=== PATIENT | male | born 2000 | race Caucasian/White ===

== ENCOUNTER 2022-08-25 23:53 | Emergency (ER) | payer OTHER ==
[2022-08-26] MEDS ORDERED: ASPIRIN 81 MG CHEWABLE TABLET ONE (00:54)
[2022-08-26 01:58] LABS: RBC Red Blood Cell Count 5.07 M/uL (4.33-5.43)
[2022-08-26 01:59] LABS: Protime INR 0.99
[2022-08-26 02:09] LABS: Absolute Lymphocytes (CBC) 2.9 K/uL (0.7-4.9); Hematocrit 40.9 % (39.6-49.0); MCV 80.7 fL (80-100); MPV 8.8 fL (7.6-11.3)
[2022-08-26 02:13] LABS: Bilirubin Direct 0.1 mg/dL (0-0.2); Bilirubin Total 0.5 mg/dL (0.2-1.0); Magnesium 2.4 mg/dL (1.6-2.4); Potassium 3.5 mmol/L (3.5-5.1); Protein, Total 7.8 g/dL (6.4-8.2); Troponin High Sensitivity 8.2 pg/mL (<58.9)
[2022-08-26] MEDS ORDERED: AMLODIPINE 5 MG TAB ONE (03:20)
--- NOTE | 2022-08-26 04:09 | ER ---
Nurse's Notes [facility] Name: Eddie Cleveland Age: 21 yrs Sex: Male : 2000 Arrival Date: 08/25/2022 Time: 23:57 Bed 6 Private MD: Diagnosis: Chest pain, unspecified;Essential (primary) hypertension Presentation: 08/26 00:19 Chief complaint: Patient states: I started having chest pain two days ago. It feel deep kd3 and it is right in the center. It comes and goes and stays for a minute and then it goes away. I think i am having a tremor with it when it happens. I do take medication for high blood pressure. 00:19 Method Of Arrival: Ambulatory kd3 00:22 Coronavirus screen: Vaccine status: Patient reports being unvaccinated. Ebola Screen: kd3 No symptoms or risks identified at this time. Initial Sepsis Screen: Does the patient meet any 2 criteria? No. Patient's initial sepsis screen is negative. Does the patient have a suspected source of infection? No. Patient's initial sepsis screen is negative. Risk Assessment: Do you want to hurt yourself or someone else? Patient reports no desire to harm self or others. Onset of symptoms was August 26, 2022. 00:22 Acuity: TIP 4 kd3 Triage Assessment: 00:22 General: Appears in no apparent distress. Behavior is calm, cooperative. Pain: kd3 Complains of pain in mid-sternal area. Cardiovascular: Capillary refill < 3 seconds in bilateral fingers Patient's skin is warm and dry. Historical: - Allergies: 00:21 No Known Allergies; kd3 - Home Meds: 00:21 losartan-hydrochlorothiazide oral [Active]; amlodipine oral [Active]; kd3 - PMHx: 00:21 Hypertensive disorder; Anxiety; kd3 - Immunization history:: Adult Immunizations up to date, Client reports having NOT received the Covid vaccine. - Social history:: Smoking status: Patient denies any tobacco usage or history of. - Family history:: not pertinent. Screenin:40 [facility] ED Fall Risk Assessment (Adult) History of falling in the last 3 months, ll3 including since admission No falls in past 3 months (0 pts) Confusion or Disorientation No (0 pts) Intoxicated or Sedated No (0 pts) Impaired Gait No (0 pts) Mobility Assist Device Used No (0 pt) Altered Elimination No (0 pt) Score/Fall Risk Level 0 - 2 = Low Risk Oriented to surroundings, Maintained a safe environment. Abuse screen: Denies threats or abuse. Denies injuries from another. Nutritional screening: No deficits noted. Tuberculosis screening: No symptoms or risk factors identified. Assessment: 01:00 General: Appears uncomfortable, Behavior is calm, cooperative. Pain: Complains of pain ll3 in mid-sternal area Pain does not radiate. Pain currently is 9 out of 10 on a pain scale. Quality of pain is described as pressure, Pain began 2-3 days ago. Is intermittent. Neuro: Level of Consciousness is awake, alert, obeys commands, Oriented to person, place, time, situation. Cardiovascular: Patient's skin is warm and dry. Chest pain is described as mild, quality is pressure, is located in anterior chest wall began 1 day ago episodes are continuous. Respiratory: Respiratory effort is even, unlabored, Respiratory pattern is regular, symmetrical. Derm: Skin is pink, warm \T\ dry. 02:45 Reassessment: No changes from previously documented assessment. Patient and/or family ll3 updated on plan of care and expected duration. Pain level reassessed. Patient is alert, oriented x 3, equal unlabored respirations, skin warm/dry/pink. Vital Signs: 00:18 BP 146 / 88; Pulse 70; Resp 16; Temp 98.1(O); Pulse Ox 100% on R/A; Weight 158.76 kg; kd3 Height 6 ft. 1 in. (185.42 cm); Pain 9/10; 02:45 BP 126 / 75; Pulse 62; Resp 16; Pulse Ox 95% on R/A; ll3 04:41 BP 128 / 89; Pulse 67; Resp 16; Pulse Ox 100% on R/A; ll3 04:42 BP 128 / 89; Pulse 67; Resp 16; Pulse Ox 99% on R/A; ll3 00:18 Body Mass Index 46.18 (158.76 kg, 185.42 cm) kd3 ED Course: 08/25 23:57 Patient arrived in ED. ja2 08/26 00:22 Triage completed. kd3 00:22 Arm band placed on right wrist. kd3 00:28 Tawanda Figueroa MD is Attending Physician. [facility] 01:30 No provider procedures requiring assistance completed. Inserted saline lock: 20 gauge kd3 in right antecubital area, using aseptic technique. Blood collected. Patient maintains SpO2 saturation greater than 95% on room air. 01:36 XRAY Chest (1 view) In Process Unspecified. EDMS 01:59 CT Aorta for Dissection In Process Unspecified. EDMS 04:09 Jimy Aguirre MD is Referral Physician. [facility] 04:37 April Scott RN is Primary Nurse. ll3 04:40 Patient has correct armband on for positive identification. Placed in gown. Bed in low ll3 position. Call light in reach. Side rails up X 1. Client placed on continuous cardiac and pulse oximetry monitoring. NIBP monitoring applied. 05:01 IV discontinued, intact, bleeding controlled, No redness/swelling at site. Pressure ll3 dressing applied. Administered Medications: 01:03 Drug: Aspirin 162 mg Route: PO; kl 02:16 Follow up: Response: No adverse reaction ll3 03:19 Drug: Norvasc (amlodipine) 5 mg Route: PO; kl 04:41 Follow up: BP 128 / 89; Pulse 67 bpm; Resp 16 bpm; Pulse Ox 100% RA ll3 04:42 Follow up: Response: No adverse reaction ll3 Medication: 04:41 VIS not applicable for this client. ll3 Outcome: 04:09 Discharge ordered by . [facility] 05:01 Discharged to home ambulatory. ll3 05:01 Condition: stable 05:01 Discharge instructions given to patient, Instructed on discharge instructions, follow up and referral plans. medication usage, Demonstrated understanding of instructions, follow-up care, medications, Prescriptions given X 2. 05:01 Patient left the ED. ll3 Signatures: Dispatcher [employer] Shalini Ellison RN RN kl Anderson, Corey, MD MD cha Alexander, Jessica ja2 Loubet, Lynsea, ALISSA MAXWELL ll3 Carissa Gaviria RN RN kd3
--- NOTE | 2022-08-26 04:09 | EDPHYS ---
Physician Documentation [facility] Name: Eddie Cleveland Age: 21 yrs Sex: Male : 2000 Arrival Date: 08/25/2022 Time: 23:57 Bed 6 Private MD: ED Physician Tawanda Figueroa HPI: 08/26 01:17 This 21 yrs old Black Male presents to ER via Ambulatory with complaints of Chest Pain. fannie 01:17 The patient or guardian reports chest pain that is located primarily in the substernal fannie area. The pain does not radiate. Associated signs and symptoms: The patient has no apparent associated signs or symptoms. The chest pain is described as aching. Duration: The patient or guardian reports multiple episodes, with no pattern. Modifying factors: The symptoms are alleviated by nothing. the symptoms are aggravated by nothing. Severity of pain: At its worst the pain was moderate in the emergency department the pain is unchanged. The patient has experienced similar episodes in the past, several times. Historical: - Allergies: 00:21 No Known Allergies; kd3 - Home Meds: 00:21 losartan-hydrochlorothiazide oral [Active]; amlodipine oral [Active]; kd3 - PMHx: 00:21 Hypertensive disorder; Anxiety; kd3 - Immunization history:: Adult Immunizations up to date, Client reports having NOT received the Covid vaccine. - Social history:: Smoking status: Patient denies any tobacco usage or history of. - Family history:: not pertinent. ROS: 01:17 Constitutional: Negative for fever, chills, and weight loss, Eyes: Negative for injury, fannie pain, redness, and discharge, ENT: Negative for injury, pain, and discharge, Neck: Negative for injury, pain, and swelling, Cardiovascular: Negative for chest pain, palpitations, and edema, Respiratory: Negative for shortness of breath, cough, wheezing, and pleuritic chest pain, Abdomen/GI: Negative for abdominal pain, nausea, vomiting, diarrhea, and constipation, Back: Negative for injury and pain, : Negative for injury, bleeding, discharge, and swelling, MS/Extremity: Negative for injury and deformity, Skin: Negative for injury, rash, and discoloration, Neuro: Negative for headache, weakness, numbness, tingling, and seizure, Psych: Negative for depression, anxiety, suicide ideation, homicidal ideation, and hallucinations, Allergy/Immunology: Negative for hives, rash, and allergies, Endocrine: Negative for neck swelling, polydipsia, polyuria, polyphagia, and marked weight changes, Hematologic/Lymphatic: Negative for swollen nodes, abnormal bleeding, and unusual bruising. Exam: 01:17 Constitutional: This is a well developed, well nourished patient who is awake, alert, fannie and in no acute distress. Head/Face: Normocephalic, atraumatic. Eyes: Pupils equal round and reactive to light, extra-ocular motions intact. Lids and lashes normal. Conjunctiva and sclera are non-icteric and not injected. Cornea within normal limits. Periorbital areas with no swelling, redness, or edema. ENT: Nares patent. No nasal discharge, no septal abnormalities noted. Tympanic membranes are normal and external auditory canals are clear. Oropharynx with no redness, swelling, or masses, exudates, or evidence of obstruction, uvula midline. Mucous membranes moist. Neck: Trachea midline, no thyromegaly or masses palpated, and no cervical lymphadenopathy. Supple, full range of motion without nuchal rigidity, or vertebral point tenderness. No Meningismus. Chest/axilla: Normal chest wall appearance and motion. Nontender with no deformity. No lesions are appreciated. Cardiovascular: Regular rate and rhythm with a normal S1 and S2. No gallops, murmurs, or rubs. Normal PMI, no JVD. No pulse deficits. Respiratory: Lungs have equal breath sounds bilaterally, clear to auscultation and percussion. No rales, rhonchi or wheezes noted. No increased work of breathing, no retractions or nasal flaring. Abdomen/GI: Soft, non-tender, with normal bowel sounds. No distension or tympany. No guarding or rebound. No evidence of tenderness throughout. Back: No spinal tenderness. No costovertebral tenderness. Full range of motion. Skin: Warm, dry with normal turgor. Normal color with no rashes, no lesions, and no evidence of cellulitis. MS/ Extremity: Pulses equal, no cyanosis. Neurovascular intact. Full, normal range of motion. Neuro: Awake and alert, GCS 15, oriented to person, place, time, and situation. Cranial nerves II-XII grossly intact. Motor strength 5/5 in all extremities. Sensory grossly intact. Cerebellar exam normal. Normal gait. Psych: Awake, alert, with orientation to person, place and time. Behavior, mood, and affect are within normal limits. 01:17 ECG was reviewed by the Attending Physician. 01:17 Musculoskeletal/extremity: DVT Exam: No signs of deep vein thrombosis. no pain, no swelling, no tenderness, negative Homans' sign noted on exam, no appreciated bluish discoloration, no erythema, no increased warmth. Vital Signs: 00:18 BP 146 / 88; Pulse 70; Resp 16; Temp 98.1(O); Pulse Ox 100% on R/A; Weight 158.76 kg; kd3 Height 6 ft. 1 in. (185.42 cm); Pain 9/10; 02:45 BP 126 / 75; Pulse 62; Resp 16; Pulse Ox 95% on R/A; ll3 04:41 BP 128 / 89; Pulse 67; Resp 16; Pulse Ox 100% on R/A; ll3 04:42 BP 128 / 89; Pulse 67; Resp 16; Pulse Ox 99% on R/A; ll3 00:18 Body Mass Index 46.18 (158.76 kg, 185.42 cm) kd3 MDM: 00:28 Patient medically screened. fannie 01:19 Differential diagnosis: abnormal EKG, acute myocardial infarction, acute pericarditis, fannie anxiety, coronary artery disease congestive heart failure Cholelithiasis costochondritis, esophagitis, gastritis, hiatal hernia, myocarditis, pancreatitis, peptic ulcer disease, pleurisy, pulmonary embolus, stable angina, thoracic aortic disection, unstable angina. HEART Score: History: Slightly Suspicious (0), ECG: Non specific repolarization disturbance / LBTB / PM (1), Age: < or = 45 years (0), Risk Factors: 1 or 2 risk factors (1), [Hypertension] [Obesity] Troponin: < or = 1 x Normal Limit (0). GRADY Risk Score: TOTAL SCORE = 0. Data reviewed: vital signs, nurses notes, lab test result(s), EKG, radiologic studies, CT scan, plain films. Consideration of Admission/Observation Patient was admitted/placed on observation. Escalation of care including admission/observation considered. I considered the following discharge prescriptions or medication management in the emergency department Medications were administered in the Emergency Department. See MAR. Independent interpretation of the following test(s) in the Emergency Department EKG: See my EKG interpretation above classroom monitor: rate is 70 beats/min, Rhythm is regular. Test considered but Not performed: Ultrasound ECHO. 08/26 00:40 Order name: Basic Metabolic Panel; Complete Time: 02:[address] [facility] 08/26 00:40 Order name: CBC with Diff; Complete Time: 02:[address] [facility] 08/26 00:40 Order name: LFT's; Complete Time: 02:[address] [facility] 08/26 00:40 Order name: Magnesium; Complete Time: 02:[address] [facility] 08/26 00:40 Order name: NT PRO-BNP; Complete Time: 02:[address] [facility] 08/26 00:40 Order name: PT-INR; Complete Time: 02:[address] [facility] 08/26 00:40 Order name: Troponin HS; Complete Time: 02:[address] [facility] 08/26 00:40 Order name: XRAY Chest (1 view) [facility] 08/26 00:40 Order name: CT Aorta for Dissection [facility] 08/26 00:40 Order name: UDS [facility] 08/26 00:40 Order name: Lipase; Complete Time: 02:[address] [facility] 08/26 01:22 Order name: Troponin High Sensitivity: [address] [facility] 08/26 02:07 Order name: CREATININE WHOLE BLOOD; Complete Time: 02:36 [facility] 08/26 00:40 Order name: EKG; Complete Time: 00:[address] [facility] 08/26 00:40 Order name: Cardiac monitoring; Complete Time: 00:[address] [facility] 08/26 00:40 Order name: EKG - Nurse/Tech; Complete Time: 00:[address] [facility] 08/26 00:40 Order name: IV Saline Lock; Complete Time: 01:[address] [facility] 08/26 00:40 Order name: Labs collected and sent; Complete Time: 01:[address] [facility] 08/26 00:40 Order name: O2 Per Protocol; Complete Time: 00:[address] [facility] 08/26 00:40 Order name: O2 Sat Monitoring; Complete Time: 00:[address] [facility] EC:17 Rate is 63 beats/min. Rhythm is regular. QRS [place] is Normal. SD interval is normal. QRS fannie interval is normal. QT interval is normal. No Q waves. T waves are Normal. No ST changes noted. Clinical impression: NSR w/ Non-specific ST/T Changes and No evidence of ischemia. Interpreted by me. Reviewed by me. Administered Medications: :03 Drug: Aspirin 162 mg Route: PO; kl 02:16 Follow up: Response: No adverse reaction ll3 03:19 Drug: Norvasc (amlodipine) 5 mg Route: PO; kl 04:41 Follow up: BP 128 / 89; Pulse 67 bpm; Resp 16 bpm; Pulse Ox 100% RA ll3 04:42 Follow up: Response: No adverse reaction ll3 Disposition Summary: 08/26/22 04:09 Discharge Ordered Location: Home fannie Problem: new fannie Symptoms: have improved fannie Condition: Stable fannie Diagnosis - Chest pain, unspecified fannie - Essential (primary) hypertension fannie Followup: fannie - With: Private Physician - When: 2 - 3 days - Reason: Recheck today's complaints, Continuance of care, Re-evaluation by your physician Followup: fannie - With: - When: 2 - 3 days - Reason: Recheck today's complaints, Re-evaluation by your physician Discharge Instructions: - Discharge Summary Sheet fannie - Nonspecific Chest Pain, Adult fannie - Hypertension, Adult fannie - Nonspecific Chest Pain, Adult, [id number] fannie - Hypertension, Adult, [id number]-[id number] fannie - How to Take Your Blood Pressure, [id number] fannie - Aspirin and Your Heart fannie - Managing Your Hypertension fannie Forms: - Medication Reconciliation Form fannie - Thank You Letter fannie - Antibiotic Education fannie - Prescription Opioid Use fannie Prescriptions: - Norvasc 5 mg Oral Tablet - take 1 tablet by ORAL route once daily; 20 tablet; Refills: 0, Product fannie Selection Permitted - Pepcid 20 mg Oral Tablet - take 1 tablet by ORAL route every 12 hours for 21 days; 42 tablet; Refills: 0, fannie Product Selection Permitted Signatures: Dispatcher [employer] Shalini Ellison, RN Tawanda Hightower MD MD cha Doucette, Kyli RN RN kd3 April Scott RN 3
[2022-08-26 05:17] VITALS: TEMP 98.1
[2022-08-26 05:28] VITALS: BP 128/89
[2022-08-26 05:29] VITALS: O2SAT 99
--- NOTE | 2022-08-26 11:11 | RAD REPORT ---
EXAM DESCRIPTION: RAD - Chest Single View - 08/26/2022 1:34 am CLINICAL HISTORY: 21 years, Male, DISSECTION COMPARISON: None. TECHNIQUE: Multiple transaxial tomograms from the thoracic and abdominal aorta from the lung apex to the ischial tuberosities performed after the administration of large bolus of IV contrast for comple te opacification of the thoracic, abdominal aorta and iliac arteries utilizing 3 mm slice thickness a t 3 mm interval reconstruction. 2-D and 3-D multiplanar reformats, volume rendering technique and maximum intensity projection images were generated and reviewed. This exam was performed according to our departmental dose-optimization protocol, which includes auto mated exposure control, adjustment of the mA and/or kV according to patient size and/or use of iterat julián reconstruction technique. FINDINGS: Thoracic aorta: The thoracic aorta demonstrate to be within normal limits. There is no evidence for significant aneur ysm. No gross dissection could be identified although motion artifact within the aortic root/ascendin g thoracic aorta limits evaluation. There is normal branching pattern of the great vessels with no ev idence for significant stenosis/or proximal occlusion. Abdominal aorta: The abdominal aorta demonstrate to be unremarkable. There is no evidence for dissection/or aneurysm. Bilateral iliac arteries demonstrate to be normal. There is normal branching pattern of the visceral branches. No evidence for significant stenosis/or occlusion Chest: The lung parenchyma demonstrate to be clear. No significant pulmonary nodules and/or masses. The trachea mainstem bronchus demonstrate to be unremarkable. There is no pleural/or pericardial effu sions. The heart is normal in size. The central pulmonary arteries demonstrate to be clear with no evidence for significant filling defects that will suggest pulmonary embolus. There is no significant mediastinal and/or hilar lymphadenopathy. The axillary regions demonstrate to be clear. The bone windows demonstrate no significant skeletal lesions. Abdomen and pelvis: The liver, gallbladder, spleen, adrenal glands, pancreas demonstrate to be unremarkable. The kidneys demonstrate normal uptake of contrast media. The unopacified stomach, small bowel and lar ge bowel demonstrate to be unremarkable. The appendix is normal. There is mild fecal stasis. The urinary bladder was partially distended with no gross abnormalities. The prostate gland is unrema rkable. There is no retroperitoneal lymphadenopathy. There is no evidence for ascites. The bone windo ws demonstrate unremarkable. IMPRESSION: No evidence for significant aneurysm/dissection of the thoracic or abdominal aorta. No evidence for significant pulmonary embolus. Mild fecal stasis. Electronically signed by: Anil Law MD 08/26/2022 2:26 AM FELT COVERER Due to temporary technical issues with the PACS/Fluency reporting system, reports are being signed by the in house radiologists without review as a courtesy to insure prompt reporting. The interpreting radiologist is fully responsible for the content of the report.
--- NOTE | 2022-08-26 14:14 | RAD REPORT ---
EXAM DESCRIPTION: CT - Angio Aorta For Dissection - 08/26/2022 6:12 am CLINICAL HISTORY: 21 years, Male, DISSECTION COMPARISON: None. TECHNIQUE: Multiple transaxial tomograms from the thoracic and abdominal aorta from the lung apex to the ischial tuberosities performed after the administration of large bolus of IV contrast for comple te opacification of the thoracic, abdominal aorta and iliac arteries utilizing 3 mm slice thickness a t 3 mm interval reconstruction. 2-D and 3-D multiplanar reformats, volume rendering technique and maximum intensity projection images were generated and reviewed. This exam was performed according to our departmental dose-optimization protocol, which includes auto mated exposure control, adjustment of the mA and/or kV according to patient size and/or use of iterat julián reconstruction technique. FINDINGS: Thoracic aorta: The thoracic aorta demonstrate to be within normal limits. There is no evidence for significant aneur ysm. No gross dissection could be identified although motion artifact within the aortic root/ascendin g thoracic aorta limits evaluation. There is normal branching pattern of the great vessels with no ev idence for significant stenosis/or proximal occlusion. Abdominal aorta: The abdominal aorta demonstrate to be unremarkable. There is no evidence for dissection/or aneurysm. Bilateral iliac arteries demonstrate to be normal. There is normal branching pattern of the visceral branches. No evidence for significant stenosis/or occlusion Chest: The lung parenchyma demonstrate to be clear. No significant pulmonary nodules and/or masses. The trachea mainstem bronchus demonstrate to be unremarkable. There is no pleural/or pericardial effu sions. The heart is normal in size. The central pulmonary arteries demonstrate to be clear with no evidence for significant filling defects that will suggest pulmonary embolus. There is no significant mediastinal and/or hilar lymphadenopathy. The axillary regions demonstrate to be clear. The bone windows demonstrate no significant skeletal lesions. Abdomen and pelvis: The liver, gallbladder, spleen, adrenal glands, pancreas demonstrate to be unremarkable. The kidneys demonstrate normal uptake of contrast media. The unopacified stomach, small bowel and lar ge bowel demonstrate to be unremarkable. The appendix is normal. There is mild fecal stasis. The urinary bladder was partially distended with no gross abnormalities. The prostate gland is unrema rkable. There is no retroperitoneal lymphadenopathy. There is no evidence for ascites. The bone windo ws demonstrate unremarkable. IMPRESSION: No evidence for significant aneurysm/dissection of the thoracic or abdominal aorta. No evidence for significant pulmonary embolus. Mild fecal stasis. Electronically signed by: Anil Law MD 08/26/2022 2:26 AM AIRLINE STATION AGENT Due to temporary technical issues with the PACS/Fluency reporting system, reports are being signed by the in house radiologists without review as a courtesy to insure prompt reporting. The interpreting radiologist is fully responsible for the content of the report.
--- NOTE | 2022-08-26 15:31 | EKG ---
Test Date: 2022-08-26 Test Time: 00:31:45 Director Of People: LL MEASUREMENT RESULTS: Intervals: Rate: 63 WY: 198 QRSD: 118 QT: 414 QTc: 423 [place]: P: 49 WY: 198 QRS: 93 T: 34 INTERPRETIVE STATEMENTS: Normal sinus rhythm with sinus arrhythmia Rightward axis Possible Anterior infarct, age undetermined Abnormal ECG No previous ECG available for comparison Electronically Signed On 08-26-22 15:30:22 REGISTERED NURSE MATERNITY by Robert Walters
== END 2022-08-26 05:01 | disposition home or self-care (01) ==
LOC: ER 23:53
DX: R07.89 Other chest pain (principal); I10 Essential (primary) hypertension; F41.9 Anxiety disorder, unspecified
CPT/HCPCS: 36415; 71045; 71275; 74175; 80048; 80076; 82565; 83690; 83735; 83880; 84484; 85025; 85610; 93005; Q9967